=== PATIENT | male | born 1980 | race Caucasian/White ===

== ENCOUNTER 2018-12-27 16:53 | Emergency (ER) | payer MEDICAID ==
[~2018-12-27] VITALS: Ht 180.3 cm; Wt 97.1 kg
[2018-12-27 17:22] VITALS: BP_SYST 116
--- NOTE | 2018-12-27 17:26 | NUR ---
Patient triaged and placed in waiting room. VSS and patient appears in no acute distress at this time. Accompanied by self, awaiting available bed, and MD notified of need for MSE.
--- NOTE | 2018-12-27 18:12 | NUR ---
ER at bedside examining patient.
--- NOTE | 2018-12-27 18:12 | NUR ---
pt brought self to ER. Pt a/ox4. pt states c/o of irritation and reddness to buttocks area. pt denies chest pain, sob, n/v, blurred vision, dizziness. pt denies any other complaint at this time. pt resting in bed in prone position due to discomfort. no acute distress noted. will continue to monitor.
[2018-12-27] MEDS ORDERED: BACITRACIN 1 GM OINT TP ONE (18:15)
[2018-12-27] MEDS ORDERED: SULFAMETHOXAZOLE/TRIMETHOPR DS 1 TABLET PO ONE (18:15)
[2018-12-27] MEDS ORDERED: ceFAZolin SODIUM 1 GM VIAL IM ONE (18:15)
[2018-12-27 19:11] VITALS: BP_SYST 116
--- NOTE | 2018-12-27 19:11 | NUR ---
Patient given written and verbal discharge instructions and verbalizes understanding. ER MD discussed with patient the results and treatment provided. Patient in stable condition. ID arm band removed. Rx of bactrim and augmentin given. Patient educated on side effects and use of meds. Opportunity for questions provided and answered. Medication side effect fact sheet provided.
== END 2018-12-27 19:11 | disposition home or self-care (01) ==
LOC: SED 16:53
DX: L03.317 Cellulitis of buttock (principal)
CPT/HCPCS: 96372; 99283; J0690